=== PATIENT | female | born 1975 | race Caucasian/White ===

== ENCOUNTER 2023-09-28 15:33 | Outpatient (CLI) | payer BC | END 2023-09-28 15:34 | disposition home or self-care (01) | LOC: CSHRAD 15:33 | PROVIDERS: ATTEND Orthopaedic Surgery | DX: M22.91 Unspecified disorder of patella, right knee (principal); S83.241A Other tear of medial meniscus, current injury, right knee, initial encounter; M94.8X6 Other specified disorders of cartilage, lower leg; M25.461 Effusion, right knee ==